=== PATIENT | female | born 1990 | race African-American/Black ===

== ENCOUNTER 2025-02-12 09:20 | Emergency (ER) | payer OTHER | END 2025-02-12 13:06 | disposition short-term general hospital (02) | LOC: NAV ERS 09:20 | DX: M79.652 Pain in left thigh (principal); M79.662 Pain in left lower leg; M79.89 Other specified soft tissue disorders; I10 Essential (primary) hypertension; E11.9 Type 2 diabetes mellitus without complications; F17.210 Nicotine dependence, cigarettes, uncomplicated; F17.290 Nicotine dependence, other tobacco product, uncomplicated; Z86.718 Personal history of other venous thrombosis and embolism; Z91.148 Patient's other noncompliance with medication regimen for other reason | CPT/HCPCS: 99284 ==